=== PATIENT | female | born 2000 | race Caucasian/White ===

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

== ENCOUNTER 2021-03-17 23:54 | Emergency (ER) | payer MEDICAID ==
[~2021-03-17] VITALS: Ht 168 cm; Wt 63.5 kg
--- NOTE | 2021-03-18 00:36 | ED GU-Female ---
General Chief Complaint: Foreign Body Stated Complaint: TAMPON IN VAGINA,CAN'T GET IT OUT Source: patient, other Exam Limitations: no limitations History of Present Illness Date Seen by Provider: Mar 18, 2021 Time Seen by Provider: 00:21 Initial Comments Patient to the ER by private conveyance with her significant other and chief complaint that on Wednesday, 6 days ago she started having her period. Her last time she put a tampon and was Wednesday, 4 days ago and then she forgot about it. She says she has been having a little bit of menses but has been darker. She is having a foul odor. She is not having any pain just embarrassment. She is not having any discharge dysuria or diarrhea. She had her appendix out but no other abdominal surgeries. No nausea vomiting fevers or chills. She was unable to self extract her tampon. She follows with a primary care at [facility] in [place]. She is a student locally. Allergies and Home Medications Allergies Coded Allergies: morphine (Unverified Allergy, Unknown, 08/21/17) Patient Home Medication List Home Medication List Reviewed: Yes Review of Systems Review of Systems Constitutional: No chills, No diaphoresis EENTM: No ear discharge, No hearing loss Respiratory: No cough, No phlegm, No short of breath Cardiovascular: No edema, No palpitations Gastrointestinal: No abdominal pain, No constipation, No diarrhea, No nausea Genitourinary: see HPI; denies discharge, denies dysuria Musculoskeletal: No back pain, No joint pain All Other Systemes Reviewed Negative Unless Noted: Yes Past Gtpodzl-Jywbam-Qkvmlx Hx Patient Social History Tobacco Use?: No Use of E-Cig and/or Vaping dev: No Substance use?: No Alcohol Use?: Yes Alcohol type: Beer Alcohol Frequency: Once in a while Past Medical History Psychosocial: Yes Depression Blood Disorders: Yes Adverse Reaction/Blood Tranf: Yes Physical Exam Vital Signs Capillary Refill : Height, Weight, BMI Height: 5'6.00" Weight: 135lbs. oz. [id number]; 21.09 BMI Method:Stated General Appearance: WD/WN, no apparent distress HEENT: PERRL/EOMI, normal ENT inspection, pharynx normal Neck: full range of motion, supple, normal inspection Cardiovascular: normal peripheral pulses, regular rate, rhythm Respiratory: lungs clear, normal breath sounds, no respiratory distress, no accessory muscle use Gastrointestinal: normal bowel sounds, non tender, soft Neurologic/Psychiatric: alert, normal mood/affect, oriented x 3 Skin: normal color, warm/dry Procedures/Interventions Progress Speculum exam of the vagina. Using typical technique and sterile gloves we extracted a malodorous, dark tampon from around the cervix. We did not see any discharge or significant erythema. Patient tolerated procedure well. External vagina and pudendum were unremarkable. Progress/Results/Core Measures Suspected Sepsis SIRS Temperature: Pulse: Respiratory Rate: Blood Pressure / Mean: Results/Orders Vital Signs/I&O Capillary Refill : Departure Impression Primary Impression: Retained vaginal foreign body Qualified Codes: T19.2XXA - Foreign body in vulva and vagina, initial encounter Disposition: HOME, SELF-CARE Condition: Stable Departure-Patient Inst. Decision time for Depature: 01:00 Referrals: NO,LOCAL PHYSICIAN (PCP/Family) Primary Care Physician Patient Instructions: Vaginal Foreign Body Add. Discharge Instructions: Return to your OB provider or the ER if you develop a fever. Flagyl 1 tablet twice a day for the next week to prevent infection. You may also follow-up with [facility] for management of symptoms. All discharge instructions reviewed with patient and/or family. Voiced understanding. Scripts Metronidazole (Metronidazole) 500 Mg Tablet 500 MG PO BID for 7 Days, #14 TAB 0 Refills Prov: SHAUN PARRISH 03/18/21 SHAUN PARRISH Mar 18, 2021 00:36
[2021-03-18] MEDS ORDERED: cefTRIAXone 1,000 MG VIAL IM ONE (01:00)
[2021-03-18] MEDS ORDERED: LIDOCAINE 1% INJ 20 ML VIAL INJ ONE (01:00)
[2021-03-18] MEDS ORDERED: METR-145 PO (01:10)
[2021-03-18 01:52] VITALS: BP 146/85
== END 2021-03-18 01:52 | disposition home or self-care (01) ==
LOC: EDUNIT# 23:54 → ER 23:58
DX: T19.2XXA Foreign body in vulva and vagina, initial encounter (principal)
CPT/HCPCS: 99284

== ENCOUNTER 2021-08-29 08:20 | Emergency (ER) | payer MEDICAID ==
[~2021-08-29] VITALS: Ht 167 cm; Wt 63.5 kg
[~2021-08-29 08:20] MED LIST: METR-145 PO
--- NOTE | 2021-08-29 08:48 | ED GU-Female ---
General Chief Complaint: OB < 20 WEEKS Stated Complaint: N/V, Nursing Triage Note: PT HERE WITH COMPLAINTS OF NAUSEA, VOMITING, AND CRAMPING SINCE LAST WEDNESDAY. PT REPORTS SHE TOOK SEVERAL HOME TESTS THAT WERE POSITIVE. PT LAST MENSTRAUL PERIOD WAS THE July BUT ONLY LASTED 2 DAYS. Source: patient Exam Limitations: no limitations History of Present Illness Date Seen by Provider: Aug 29, 2021 Time Seen by Provider: 08:28 Initial Comments Patient to the ER by private conveyance from home with chief complaint of intractable nausea vomiting related to early . G1. LMP of 07/16/2021 putting her 6 weeks and 2 days. She has an appoint with Dr. Suazo to establish care next week. She is not on anything for her nausea vomiting. She is had about 1 month of cramping right lower quadrant abdominal discomfort rates presently as a 3 out of 10. No prior imaging. She is had her appendix out as well as knee repair. She is not having dysuria but she feels a little more exertional dyspnea and has noted dark urine. Nightly headaches. Does not take anything for them. There was a person at her work who went home sick with bronchitis. Allergies and Home Medications Allergies Coded Allergies: latex (Verified Allergy, Unknown, 08/29/21) morphine (Unverified Allergy, Unknown, 08/21/17) Patient Home Medication List Home Medication List Reviewed: Yes Doxylamine Succinate (Nighttime Sleep-Aid) 25 Mg Tablet, 25-50 MG PO BID PRN for NAUSEA/VOMITING-1ST LINE Prescribed by: SHAUN PARRISH on 08/29/21 09 Metronidazole (Metronidazole) 500 Mg Tablet, 500 MG PO BID Prescribed by: SHAUN PARRISH on 03/18/21 0110 Pyridoxine HCl (Pyridoxine HCl) 25 Mg Tablet, 25-50 MG PO BID PRN for NAUSEA/VOMITING-1ST LINE Prescribed by: SHAUN PARRISH on 08/29/21 0923 Review of Systems Review of Systems Constitutional: No chills, No diaphoresis EENTM: No hearing loss, No blurred vision Respiratory: No cough; dyspnea on exertion; No short of breath Cardiovascular: No chest pain, No edema Gastrointestinal: No abdominal pain, No nausea, No vomiting Genitourinary: denies discharge, denies dysuria Musculoskeletal: No back pain, No joint pain All Other Systemes Reviewed Negative Unless Noted: Yes Past Uiubmuq-Uhekjw-Vixyuk Hx Patient Social History Tobacco Use?: No Substance use?: No Alcohol Use?: No Pt feels they are or have been: No Immunizations Up To Date First/Initial COVID19 Vaccinat: N/A Second COVID19 Vaccination Power: N/A Third COVID19 Vaccination Date: N/A Past Medical History Surgery/Hospitalization HX: APPENDECTOMY, acl, meniscus Psychosocial: Yes Depression Blood Disorders: Yes Adverse Reaction/Blood Tranf: Yes Physical Exam Vital Signs Vital Signs - First Documented 08/29/21 08:35 Temp 37.0 Pulse 76 Resp 16 B/P (MAP) 154/91 (112) Pulse Ox 99 Capillary Refill : Less Than 3 Seconds Height, Weight, BMI Height: 5'6.00" Weight: 135lbs. oz. 61.505169du; 22.00 BMI Method:Stated General Appearance: WD/WN, no apparent distress HEENT: PERRL/EOMI, normal ENT inspection, TMs normal, pharynx normal Neck: full range of motion, supple, normal inspection Cardiovascular: normal peripheral pulses, regular rate, rhythm Respiratory: no respiratory distress, no accessory muscle use; No crackles, No wheezing; plerual rub (Faint right upper) Gastrointestinal: normal bowel sounds, non tender, soft Extremities: non-tender, normal inspection, normal capillary refill Neurologic/Psychiatric: alert, oriented x 3, other (Anxious) Skin: normal color, warm/dry Progress/Results/Core Measures Suspected Sepsis SIRS Temperature: Pulse: 76 Respiratory Rate: 16 Blood Pressure 154 /91 Mean: 112 Results/Orders Lab Results Laboratory Tests Test 08/29/21 08:30 Range/Units Urine Color YELLOW Urine Clarity CLEAR Urine pH 6.0 5-9 Urine Specific Freedom >=1.030 1.016-1.022 Urine Protein NEGATIVE NEGATIVE Urine Glucose (UA) NEGATIVE NEGATIVE Urine Ketones NEGATIVE NEGATIVE Urine Nitrite NEGATIVE NEGATIVE Urine Bilirubin NEGATIVE NEGATIVE Urine Urobilinogen 0.2 < = 1.0 MG/DL Urine Leukocyte Esterase NEGATIVE NEGATIVE Urine RBC (Auto) NEGATIVE NEGATIVE Urine RBC RARE /HPF Urine WBC RARE /HPF Urine Squamous Epithelial Cells 5-10 /HPF Urine Crystals PRESENT H /LPF Urine Amorphous Sediment FEW VANIA URATES H /LPF Urine Bacteria TRACE /HPF Urine Casts NONE /LPF Urine Mucus MODERATE H /LPF Urine Culture Indicated NO My Orders Orders - FRANCOIS,SHAUN J Ua Culture If Indicated (08/29/21 08:36) Urine Bedside (08/29/21 08:36) Pyridoxine Tablet (Vitamin B-6 Tablet) (08/29/21 09:15) Medications Given in ED Current Medications Medications Dose Ordered Sig/Yanique Route Start Time Stop Time Status Last Admin Dose Admin Pyridoxine HCl 50 mg ONCE ONCE PO 08/29/21 09:15 08/29/21 09:17 DC 08/29/21 09:30 50 MG Vital Signs/I&O 08/29/21 08:35 Temp 37.0 Pulse 76 Resp 16 B/P (MAP) 154/91 (112) Pulse Ox 99 Capillary Refill : Less Than 3 Seconds Blood Pressure Mean: 112 Progress Note : Time: 09:11 Progress Note Patient likely has a viral syndrome which could explain some of her exertional dyspnea. We did offer COVID testing which she declined. Informed her that it is likely that she has some viral syndrome and may yet develop a cough but unless this becomes more severe or her symptoms or not controlled she does not necessarily have to do anything else besides usual symptomatic support. For her sneezing we recommended Claritin or Zyrtec. Will also recommend doxylamine and vitamin B6. Urine specimen. We did offer IV fluids which the patient declined at this time. With her normal vital signs she probably does not need them. We will give her a dose of pyridoxine 50 mg. Departure Impression Primary Impression: related nausea and vomiting, antepartum Disposition: 01 HOME, SELF-CARE Condition: Stable Departure-Patient Inst. Decision time for Depature: 09:34 Referrals: NO,LOCAL PHYSICIAN (PCP/Family) Primary Care Physician Patient Instructions: Morning Sickness (DC) Add. Discharge Instructions: Pyridoxine/doxylamine 2 tablets twice a day as necessary for nausea or vomiting. You may take this preemptively. If you are having sneezing, runny nose etc. you can use 10 mg of Zyrtec or Claritin, cetirizine/loratadine as necessary daily. For breakthrough allergic symptoms you can use a tablet of Benadryl every 6 hours. Tylenol 1000 mg every 8 hours is okay for headaches or general pain/fever. Return to the ER promptly for significant dehydration, intractable vomiting or other worrisome symptoms. Follow-up keep your follow-up with Dr. Suazo as scheduled. All discharge instructions reviewed with patient and/or family. Voiced understanding. Scripts Doxylamine Succinate (Nighttime Sleep-Aid) 25 Mg Tablet 25-50 MG PO BID PRN for NAUSEA/VOMITING-1ST LINE for 7 Days, #28 TAB 0 Refills Prov: SHAUN PARRISH 08/29/21 Pyridoxine HCl (Pyridoxine HCl) 25 Mg Tablet 25-50 MG PO BID PRN for NAUSEA/VOMITING-1ST LINE for 7 Days, #28 TAB 0 Refills Prov: SHAUN PARRISH 08/29/21 Work/School Note: Work Release Form Date Seen in the Emergency Department: Aug 29, 2021 Return to Work: Aug 31, 2021 Restrictions: No Restrictions SHAUN PARRISH Aug 29, 2021 08:48
[2021-08-29 08:56] LABS: BILIRUBIN,URINE NEGATIVE (NEGATIVE); CLARITY,URINE CLEAR; COLOR,URINE YELLOW; GLUCOSE, URINE (UA) NEGATIVE (NEGATIVE); KETONES,URINE NEGATIVE (NEGATIVE); LEUKOCYTE ESTERASE ,URINE NEGATIVE (NEGATIVE); NITRITE,URINE NEGATIVE (NEGATIVE); PROTEIN,URINE NEGATIVE (NEGATIVE)
[2021-08-29] MEDS ORDERED: PYRIDOXINE (VITAMIN B-6) 50 MG TABLET PO ONE (09:15)
[2021-08-29 09:23] LABS: AMORPHOUS SEDIMENT,UR FEW AMOR URATES /LPF; BACTERIA,URINE TRACE /HPF; RBC,URINE RARE /HPF; WBC,URINE RARE /HPF
[2021-08-29] MEDS ORDERED: DOXY25TA45 PO (09:23)
[2021-08-29] MEDS ORDERED: PYRI25TA4 PO (09:23)
[2021-08-29 09:39] VITALS: BP 120/74
== END 2021-08-29 09:39 | disposition home or self-care (01) ==
LOC: EDUNIT# 08:20 → ER 08:22
DX: O21.9 Vomiting of pregnancy, unspecified (principal); Z91.040 Latex allergy status; Z3A.01 Less than 8 weeks gestation of pregnancy
CPT/HCPCS: 81000; 84703; 99283

== ENCOUNTER → 2021-12-04 | Outpatient (CLI) | payer MEDICAID ==
[~2021-12-04] MED LIST changes: +DOXY25TA45 PO; +PYRI25TA4 PO
--- NOTE | 2021-12-04 17:48 | Diagnostic Imaging Report ---
INDICATION: anatomy survey. TECHNIQUE: Multiple real-time grayscale images were obtained over the gravid uterus. COMPARISON: None FINDINGS: The cervix measures 4.6 cm. Fetus is in cephalic presentation. The placenta is anterior in position and there are no features of previa. The amount of amniotic fluid appears visually appropriate and the CLAIRE is normal at 16.13 cm. Due to advanced gestational age, maternal adnexa are not well evaluated. Following structures are identified and normal: Four-chamber heart, stomach, umbilical cord insertion, kidneys, cerebral ventricles, cerebellum, cisterna magna, urinary bladder, three-vessel cord and spine. Biometrical measurements are as follows: Biparietal 4.79 cm, age 20 weeks 4 days. Head circumference 17.98 cm, age 20 weeks 3 days. Abdominal circumference 14.85 cm, age 20 weeks 1 days. Femur length 3.22 cm, age 20 weeks 1 days. Sonographic estimate age: 20 weeks 3 days. Sonographic estimated date of delivery: 04/20/2022. Estimated Weight: 334 gm (+/- 49 gm). LMP percentile: 44%. heart rate: 140 beats per minute. number: 1 of 1. IMPRESSION: 1. Single live intrauterine with normal anatomy survey. Dictated by: Dictated on workstation # [id number]
== END ==
LOC: RAD 09:32
PROVIDERS: ATTEND Obstetrics & Gynecology
DX: Z36.1 Encounter for antenatal screening for raised alphafetoprotein level (principal); Z34.92 Encounter for supervision of normal pregnancy, unspecified, second trimester; Z3A.20 20 weeks gestation of pregnancy
CPT/HCPCS: 76805

== ENCOUNTER → 2022-03-23 | Outpatient (CLI) | payer MEDICAID | LOC: LABNPT 09:53 | PROVIDERS: ATTEND Obstetrics & Gynecology | DX: Z01.89 Encounter for other specified special examinations (principal) | CPT/HCPCS: 82570; 84156 ==

== ENCOUNTER → 2022-03-30 | Outpatient (CLI) | payer MEDICAID ==
[2022-03-30 16:14] LABS: URINE CREATININE FOR RATIO 26 MG/DL (30-125)
[2022-03-30 16:15] LABS: URINE PROTEIN FOR RATIO ONLY < 6 MG/DL (6-12)
== END ==
LOC: LABNPT 15:51
PROVIDERS: ATTEND Obstetrics & Gynecology
DX: O13.9 Gestational [pregnancy-induced] hypertension without significant proteinuria, unspecified trimester (principal); Z3A.00 Weeks of gestation of pregnancy not specified
CPT/HCPCS: 82570; 84156

== ENCOUNTER → 2022-04-06 | Outpatient (CLI) | payer MEDICAID | LOC: LABNPT 15:39 | DX: O13.9 Gestational [pregnancy-induced] hypertension without significant proteinuria, unspecified trimester (principal); Z3A.00 Weeks of gestation of pregnancy not specified | CPT/HCPCS: 82570; 84156 ==

== ENCOUNTER 2022-04-07 10:10 | Inpatient (IN) | payer MEDICAID ==
[2022-04-07] VITALS (48 sets, daily range): BP systolic 115–169; BP diastolic 65–109
[~2022-04-07] VITALS: Ht 167.7 cm; Wt 100.2 kg
[2022-04-07] MEDS ORDERED: D5 LR IV SOLUTION 1,000 ML IV SCH (11:00)
[2022-04-07] MEDS ORDERED: LIDOCAINE 1% INJ 20 ML VIAL IJ PRN (11:00)
[2022-04-07 11:10] LABS: BASOPHILS % (AUTO) 0 % (0-10); EOSINOPHILS # (AUTO) 0.1 10^3/uL (0.0-0.3); EOSINOPHILS % (AUTO) 1 % (0-10); HEMATOCRIT 35 % (35-52); HEMOGLOBIN 11.8 g/dL (11.5-16.0); LYMPHOCYTES # (AUTO) 1.3 10^3/uL (1.0-4.0); LYMPHOCYTES % (AUTO) 19 % (12-44); MEAN CORPUSCULAR HEMOGLOBIN 30 pg (25-34); MEAN CORPUSCULAR HGB CONC 34 g/dL (32-36); MEAN CORPUSCULAR VOLUME 90 fL (80-99); MEAN PLATELET VOLUME 10.8 fL (9.0-12.2); MONOCYTES # (AUTO) 0.4 10^3/uL (0.0-1.0); MONOCYTES % (AUTO) 6 % (0-12); NEUTROPHILS # (AUTO) 5.2 10^3/uL (1.8-7.8); NEUTROPHILS % (AUTO) 74 % (42-75); PLATELET COUNT 212 10^3/uL (130-400)
--- NOTE | 2022-04-07 11:16 | History & Physical-OB ---
OB - Chief Complaint & HPI Date/Time Date of Admission: Date of Admission: Apr 07, 2022 at 10:10 Date seen by a Provider: Apr 07, 2022 Time Seen by a Provider: 11:00 Chief Complaint/History OB-Reason for Admission/Chief: Onset of Labor Hx : 1 Hx Para: 0 Expected Date of Delivery: Apr 22, 2022 Gestational Age in Weeks: 37 Gestational Age in Days: 6 Other reason for admission: Irregular contractions and finding of preE History of Labs O neg Antibody neg RI RPR NR HBsAg NR HIV NR GC neg GBS neg Allergies and Home Medications Allergies Coded Allergies: latex (Verified Allergy, Unknown, 08/29/21) morphine (Unverified Allergy, Unknown, 08/21/17) Patient Home Medication List Home Medication List Reviewed: Yes Doxylamine Succinate (Nighttime Sleep-Aid) 25 Mg Tablet, 25-50 MG PO BID PRN for NAUSEA/VOMITING-1ST LINE Prescribed by: SHAUN PARRISH on 08/29/21922 Metronidazole (Metronidazole) 500 Mg Tablet, 500 MG PO BID Prescribed by: SHAUN PARRISH on 03/18/21 011 Pyridoxine HCl (Pyridoxine HCl) 25 Mg Tablet, 25-50 MG PO BID PRN for NAUSEA/VOMITING-1ST LINE Prescribed by: SHAUN PARRISH on 08/29/21922 OB - History Hx of Present Care: Yes Ultrasounds: Normal mid trimester US Obstetrical Complications: Pre-eclampsia Medical Complications: None Delivery History Adverse Rxn to Tranfusion: Yes Patient Past Medical History nc Immunizations First/Initial COVID19 Vaccine: N/A Second COVID19 Vaccination: N/A Third COVID19 Vaccination Date: N/A OB - Admission Exam Physical Exam HEENT: NCAT Heart: Rhythm Normal Lungs: Clear Abdomen: Gravid Extremities: Normal Reflexes: Normal Cervical Dilatation: 3cm Effacement: 75% Station: -1 Membranes: Intact Heart Rate: 130's Accelerations: Accelerations Present Decelerations: No Decelerations Short Term Variability: Present Detention Variability: Average (6-25) Contractions on Admission: < 5 Minutes Apart Intensity: Firm Labs Laboratory Tests Test 04/07/22 10:30 Range/Units OB - Assessment/Plan/Diagnosis Assessment Admission Dx 21 yo @ 37 weeks PreE Irregular contractions GBS neg Admission Status: Inpatient Order (span 2 midnights) Reason for Inpatient Admission: Augmentation of labor at 37 weeks Plan Induction Method: MARY GARIBAY DO Apr 07, 2022 11:16
[2022-04-07] MEDS: OXYTOCIN PRE-MIX DRIP 500 ML IV SCH ×2 (13:26→19:08)
[2022-04-07] MEDS ORDERED: CATHETER FLUSH 10 ML SYR IV SCH ×2 (14:00→22:00)
[2022-04-07] MEDS ORDERED: fentaNYL 2 mcg/ml BUPIVA 0.125 0 ML ONE (14:47)
[2022-04-07] MEDS ORDERED: LACTATED RINGERS 1,000 ML IV ONE ×3 (14:48→15:30)
[2022-04-07] MEDS ORDERED: ONDANSETRON 4 MG/2 ML (SDV) Z0FRAN IV PRN (15:30)
[2022-04-07] MEDS ORDERED: NALOXONE 0.4 MG/ML 1 ML (NARCAN) VIAL IV PRN ×2 (15:30→19:30)
[2022-04-07] MEDS ORDERED: BUPIVACAINE 0.75% INJECTION 16.7 ML in NS (IVPB) 83.3 ML IV NR (15:30)
[2022-04-07] MEDS ORDERED: BUPIVACAINE 0.25% 10 ML (SENSORCAINE) VIAL ONE (15:37)
[2022-04-07] MEDS ORDERED: BUPIVACAINE 0.5% IV SCH (15:45)
[2022-04-07] MEDS ORDERED: NS IV SCH (15:45)
[2022-04-07] MEDS ORDERED: LIDOCAINE 1% INJ 10 ML VIAL ONE (18:14)
--- NOTE | 2022-04-07 19:23 | OB Labor & Delivery Record ---
L&D History Date of Service Date of Service: Apr 07, 2022 History Expected Date of Delivery: Apr 22, 2022 Gestational Age in Weeks: 37 Hx : 1 Hx Para: 0 Complications Events: Routine care Operative Indications (Cesarea: N/A-Vaginal Delivery Intrapartal Events: None L&D Stage1 Stage One Onset of Labor - Date: Apr 07, 2022 Monitors and Tracing Monitor Mode: External Heart Rate: 130 Station: -1 Seam Taper Machine Variability: Average (6-10) Short Term Variability: Present Presentation: Vertex Vital Signs VS - Last 72 Hours, by Label 04/07/22 04/07/22 04/07/22 04/07/22 10:25 10:36 11:07 11:37 Temp 36.8 Pulse 81 79 90 76 Resp 20 18 18 18 B/P (MAP) 156/92 (113) 143/95 (111) 134/78 (96) Pulse Ox 98 98 98 98 O2 Delivery Room Air Room Air Room Air Room Air 04/07/22 04/07/22 04/07/22 04/07/22 12:09 12:38 13:09 13:43 Pulse 61 67 60 85 Resp 18 18 18 18 B/P (MAP) 152/92 (112) 139/84 (102) 157/92 (113) 143/96 (112) Pulse Ox 98 98 98 98 O2 Delivery Room Air Room Air Room Air Room Air 04/07/22 04/07/22 04/07/22 04/07/22 13:58 14:12 14:28 14:42 Pulse 69 69 63 69 Resp 18 18 18 18 B/P (MAP) 153/97 (115) 136/90 (105) 139/97 (111) 149/89 (109) Pulse Ox 98 99 98 97 O2 Delivery Room Air Room Air Room Air Room Air 04/07/22 04/07/22 04/07/22 04/07/22 14:58 15:13 15:27 15:40 Pulse 59 54 55 71 Resp 18 18 18 18 B/P (MAP) 156/96 (116) 123/69 (87) 130/82 (98) 168/95 (119) Pulse Ox 98 98 98 98 O2 Delivery Room Air Room Air Room Air Room Air 04/07/22 04/07/22 04/07/22 04/07/22 15:42 15:45 15:47 15:52 Pulse 77 72 96 74 Resp 18 18 18 18 B/P (MAP) 165/98 (120) 153/95 (114) 160/99 (119) 149/94 (112) Pulse Ox 98 98 98 O2 Delivery Room Air Room Air Room Air Room Air 04/07/22 04/07/22 15:55 15:58 Pulse 73 81 Resp 18 18 B/P (MAP) 155/95 (115) 154/108 (123) Pulse Ox 98 99 O2 Delivery Room Air Room Air Rupture of Membranes Spontaneous Ruture of Membrane: No Amniotic Membrane Fluid Desc.: Clear Vaginal Bleeding Description: Normal Show Induction/Anesthesia Epidural Cath Placement - Time: 1550 Progress/Notes Patient admitted with contractions and findings of preE. AROM performed after admission, pitocin augmentation started to a max dose of 6 mu. She progressed after her epidural rapidly to complete and + 2 L&D Stage2 Stage Two Stage II Date: Apr 07, 2022 Monitors and Tracing Monitor Mode: External Heart Rate: 130 Monitor Accelerations: Uniform Monitor Decelerations: Variable Seam Taper Machine Variability: Average (6-10) Short Term Variability: Present Position: Right Occiput Anterior Presentation: Vertex Cord Descript/Complications Cord Vessel Description: 3 Vessels Complications nuchal cord reduced x 1 Delivery Type Infant Delivery Method: Spontaneous Vaginal Anterior Shoulder: Left Episiotomy/Perineal Laceration Episiotomy Description: Perineal Extension/lac, Vaginal Extension/lac, 2nd degree Degree (describe repair) vaginal/perineal laceration repaired using 3-0 rapide vicryl in usual fashion. Condition of Delivery 1 minute Comment: 8 5 minute Comment: 9 Notes Live male weight 7lbs 9 oz Condition of Infant Condition of Infant: Living Exam: No Observed Abnormalities Resuscitation Resuscitation: N/A - Spontaneous Resp L&D Stage3 Stage Three Stage III Date: Apr 07, 2022 Pictocin Pitocin Administration Comment: 30 mu wide open after delivery of placenta Placenta Delivery Placenta Delivery: Spontaneous Delivery Summary Summary Estimated blood loss (mL): 371 Attending at delivery: Mary King DO Condition of Delivery Examined: Cervix Examined, Uterus Explored Post Hemorrhage: No Condition of Mother stable Condition of Infant (s) stable MARY KING DO Apr 07, 2022 19:23
[2022-04-07] MEDS ORDERED: MEASLES,MUMPS,RUBELLA 1 EA INJ SQ ONE (19:30)
[2022-04-07] MEDS ORDERED: BENZOCAINE/MENTHOL (DERMOPLAST) 56 ML CAN TP PRN (19:30)
[2022-04-07] MEDS ORDERED: HYDROcodone/APAP 5 MG/325 MG (LORTAB) TAB PO PRN (19:30)
[2022-04-07] MEDS ORDERED: OXYTOCIN PRE-MIX DRIP 500 ML IV SCH (19:30)
[2022-04-07] MEDS ORDERED: WITCH HAZEL(TUCKS) 40 EA JAR TOP PRN (19:30)
[2022-04-07] MEDS: DOCUSATE SODIUM 100 MG (COLACE) CAP PO SCH (20:18)
[2022-04-07] MEDS: IBUPROFEN 600 MG (MOTRIN) TAB PO SCH (20:19)
[2022-04-08 00:20] VITALS: BP 138/76
[2022-04-08] MEDS: IBUPROFEN 600 MG (MOTRIN) TAB PO SCH ×4 (02:38→21:13)
[2022-04-08] MEDS ORDERED: ACETAMINOPHEN 500 MG TAB (TYLENOL) ONE (04:29)
[2022-04-08] MEDS ORDERED: ACETAMINOPHEN 500 MG TAB (TYLENOL) PO PRN (04:30)
[2022-04-08 04:32] VITALS: BP 143/89
[2022-04-08 05:57] LABS: BASOPHILS % (AUTO) 0 % (0-10); EOSINOPHILS # (AUTO) 0.1 10^3/uL (0.0-0.3); EOSINOPHILS % (AUTO) 0 % (0-10); HEMATOCRIT 29 % (35-52); HEMOGLOBIN 9.8 g/dL (11.5-16.0); LYMPHOCYTES % (AUTO) 14 % (12-44); MEAN CORPUSCULAR HEMOGLOBIN 31 pg (25-34); MEAN CORPUSCULAR HGB CONC 34 g/dL (32-36); MEAN CORPUSCULAR VOLUME 90 fL (80-99); MEAN PLATELET VOLUME 10.4 fL (9.0-12.2); MONOCYTES # (AUTO) 0.8 10^3/uL (0.0-1.0); MONOCYTES % (AUTO) 6 % (0-12); NEUTROPHILS # (AUTO) 11.1 10^3/uL (1.8-7.8); NEUTROPHILS % (AUTO) 79 % (42-75); PLATELET COUNT 180 10^3/uL (130-400); WHITE BLOOD COUNT 14.1 10^3/uL (4.3-11.0)
--- NOTE | 2022-04-08 07:19 | Postpartum Progress Note ---
Note Note Day # 1 Subjective: Patient is without complaints. Ambulating, voiding. Tolerating a regular diet without nausea or vomiting. Normal lochia. Pain is well controlled with oral pain medications. Objective: Physical Exam: General - Alert and oriented, no apparent distress Abdomen - Soft, appropriately tender to palpation, non-distended, fundus firm at umbilicus Extremities - no edema, negative Jose's bilaterally Assessment: PPD 1 NVD Mild PreE- labile BP starting on Labetalol BID 200 mg Acute blood loss anemia Plan: Routine care. Encourage breast feeding. Encourage ambulation. Ferrous sulfate supplementation. Plan for discharge tomorrow Vitals - Labs Vital Signs - I&O Vital Signs Date Time Temp Pulse Resp B/P (MAP) Pulse Ox O2 Delivery O2 Flow Rate FiO2 04/08/22 04:32 36.7 85 18 143/89 (107) 97 Room Air 04/08/22 00:20 37.1 76 18 138/76 (96) 97 Room Air 04/07/22 20:45 36.8 78 18 146/72 (96) 04/07/22 20:31 86 142/76 (98) Room Air 04/07/22 20:01 78 141/67 (91) Room Air 04/07/22 19:46 36.9 78 151/79 (103) Room Air 04/07/22 19:31 78 151/79 (103) Room Air 04/07/22 19:16 36.8 88 18 146/65 (92) Room Air 04/07/22 15:58 81 18 154/108 (123) 99 Room Air 04/07/22 15:55 73 18 155/95 (115) 98 Room Air 04/07/22 15:52 74 18 149/94 (112) 98 Room Air 04/07/22 15:47 96 18 160/99 (119) 98 Room Air 04/07/22 15:45 72 18 153/95 (114) Room Air 04/07/22 15:42 77 18 165/98 (120) 98 Room Air 04/07/22 15:40 71 18 168/95 (119) 98 Room Air 04/07/22 15:27 55 18 130/82 (98) 98 Room Air 04/07/22 15:13 54 18 123/69 (87) 98 Room Air 04/07/22 14:58 59 18 156/96 (116) 98 Room Air 04/07/22 14:42 69 18 149/89 (109) 97 Room Air 04/07/22 14:28 63 18 139/97 (111) 98 Room Air 04/07/22 14:12 69 18 136/90 (105) 99 Room Air 04/07/22 13:58 69 18 153/97 (115) 98 Room Air 04/07/22 13:43 85 18 143/96 (112) 98 Room Air 04/07/22 13:09 60 18 157/92 (113) 98 Room Air 04/07/22 12:38 67 18 139/84 (102) 98 Room Air 04/07/22 12:09 61 18 152/92 (112) 98 Room Air 04/07/22 11:37 76 18 134/78 (96) 98 Room Air 04/07/22 11:07 90 18 143/95 (111) 98 Room Air 04/07/22 10:36 79 18 156/92 (113) 98 Room Air 04/07/22 10:25 36.8 81 20 98 Room Air I & O 04/08/22 06:59 Intake Total 1000 ml Balance 1000 ml Labs Laboratory Tests 04/07/22 10:30: White Blood Count 7.0, Red Blood Count 3.91, Hemoglobin 11.8, Hematocrit 35, Mean Corpuscular Volume 90, Mean Corpuscular Hemoglobin 30, Mean Corpuscular Hemoglobin Concent 34, Red Cell Distribution Width 12.1, Platelet Count 212, Mean Platelet Volume 10.8, Immature Granulocyte % (Auto) 1, Neutrophils (%) (Auto) 74, Lymphocytes (%) (Auto) 19, Monocytes (%) (Auto) 6, Eosinophils (%) (Auto) 1, Basophils (%) (Auto) 0, Neutrophils # (Auto) 5.2, Lymphocytes # (Auto) 1.3, Monocytes # (Auto) 0.4, Eosinophils # (Auto) 0.1, Basophils # (Auto) 0.0, Immature Granulocyte # (Auto) 0.0, Syphilis Serology Non-Reactive 04/08/22 05:38: White Blood Count 14.1H, Red Blood Count 3.21L, Hemoglobin 9.8L, Hematocrit 29L, Mean Corpuscular Volume 90, Mean Corpuscular Hemoglobin 31, Mean Corpuscular Hemoglobin Concent 34, Red Cell Distribution Width 12.0, Platelet Count 180, Mean Platelet Volume 10.4, Immature Granulocyte % (Auto) 0, Neutrophils (%) (Auto) 79H, Lymphocytes (%) (Auto) 14, Monocytes (%) (Auto) 6, Eosinophils (%) (Auto) 0, Basophils (%) (Auto) 0, Neutrophils # (Auto) 11.1H, Lymphocytes # (Auto) 2.0, Monocytes # (Auto) 0.8, Eosinophils # (Auto) 0.1, Basophils # (Auto) 0.0, Immature Granulocyte # (Auto) 0.1 MARY KING DO Apr 08, 2022 07:19
[2022-04-08 08:39] VITALS: BP 143/90
[2022-04-08] MEDS: PRENATAL VITAMIN 1 EA TAB PO SCH (08:43)
[2022-04-08] MEDS: DOCUSATE SODIUM 100 MG (COLACE) CAP PO SCH ×2 (08:43→21:13)
[2022-04-08] MEDS: LABETALOL 200 MG (NORMODYNE) TAB PO SCH ×2 (08:44→21:13)
[2022-04-08] MEDS ORDERED: LABETALOL 200 MG (NORMODYNE) TAB PO ONE (08:44)
--- NOTE | 2022-04-08 09:28 | Anesthesia-Regional Post-Op ---
Regional Patient Condition Mental Status: Alert, Oriented x3 Circulation: Same as Pre-Op Headache: Absent Sensation: Full Recovery Motor Block: Absent Post Op Complications Complications None Follow Up Care/Instructions Patient Instructions None needed. Anesthesia/Patient Condition Patient is doing well, no complaints, stable vital signs, no apparent adverse anesthesia problems. No complications reported per nursing. ZACKERY JENKINS CRNA Apr 08, 2022 09:28
[2022-04-08 13:10] VITALS: BP 133/80
[2022-04-08 21:13] VITALS: BP 138/87
[2022-04-09 03:10] VITALS: BP 119/67
[2022-04-09] MEDS: IBUPROFEN 600 MG (MOTRIN) TAB PO SCH ×2 (03:11→10:29)
--- NOTE | 2022-04-09 08:21 | Postpartum Progress Note ---
Note Note Day # 2 Subjective: Patient is without complaints. Ambulating, voiding. Tolerating a regular diet without nausea or vomiting. Normal lochia. Pain is well controlled with oral pain medications. Objective: Physical Exam: General - Alert and oriented, no apparent distress Abdomen - Soft, appropriately tender to palpation, non-distended, fundus firm at umbilicus Extremities - no edema, negative Jose's bilaterally Assessment: PPD 2 NVD Mild Pre E - BP improved Acute blood loss anemia Plan: Routine care. Encourage breast feeding. Encourage ambulation. Ferrous sulfate supplementation. Plan for discharge today Vitals - Labs Vital Signs - I&O Vital Signs Date Time Temp Pulse Resp B/P (MAP) Pulse Ox O2 Delivery O2 Flow Rate FiO2 04/09/22 03:10 36.8 91 18 119/67 (84) 97 Room Air 04/08/22 21:13 36.7 91 18 138/87 (104) 98 Room Air 04/08/22 13:10 36.8 82 18 133/80 (97) 97 Room Air 04/08/22 08:39 36.9 82 18 143/90 (107) 97 Room Air MARY KING DO Apr 09, 2022 08:21
[2022-04-09] MEDS ORDERED: LABE200T10 PO (08:22)
[2022-04-09] MEDS ORDERED: DOCU100C37 PO (08:22)
[2022-04-09] MEDS ORDERED: IBUP-844 PO (08:22)
[2022-04-09] MEDS ORDERED: ACHD5005 PO (08:22)
[2022-04-09] MEDS ORDERED: BENZ78AE5 TP (08:22)
--- NOTE | 2022-04-09 08:27 | Discharge Inst-Women's Service ---
Discharge Inst-Women's Serv Depart Medication/Instructions New, Converted or Re-Newed RX: Transmitted to Pharmacy Final Diagnosis PPD 2 NVD PreE Problems Reviewed?: Yes Consults/Follow Up Additional Follow Up: Yes Orders/Referrals Dr. King in 7 days for BP check/ 6 weeks PP appointment Activity Activity: Activity as Tolerated Driving Instructions: No Driving for 1 Week NO SMOKING: NO SMOKING Nothing Inside Vagina: No Douching, No [place], No Tampons Diet Discharge Diet: No Restrictions Symptoms to Report to : Bleeding Excessive, Pain Increased, Fever Over 101 Degrees F, Vaginal Bleeding Increase, Questions/Concerns For Any Problems or Questions: Contact Your Physician MARY KING DO Apr 09, 2022 08:27
[2022-04-09 10:25] VITALS: BP 148/85
[2022-04-09] MEDS: DOCUSATE SODIUM 100 MG (COLACE) CAP PO SCH (10:29)
[2022-04-09] MEDS: LABETALOL 200 MG (NORMODYNE) TAB PO SCH (10:29)
[2022-04-09] MEDS: PRENATAL VITAMIN 1 EA TAB PO SCH (10:29)
[2022-04-09] MEDS ORDERED: MEASLES,MUMPS,RUBELLA 1 EA INJ ONE (10:37)
== END 2022-04-09 11:25 | disposition home or self-care (01) | DRG 806 ==
LOC: LDRP 10:10
PROVIDERS: ADMIT Obstetrics & Gynecology; ATTEND Obstetrics & Gynecology
PROC: 10E0XZZ Delivery of Products of Conception, External Approach (ICD-10-PCS; principal; 2022-04-07)
PROC: 0KQM0ZZ Repair Perineum Muscle, Open Approach (ICD-10-PCS; 2022-04-07)
PROC: 10907ZC Drainage of Amniotic Fluid, Therapeutic from Products of Conception, Via Natural or Artificial Opening (ICD-10-PCS; 2022-04-07)
PROC: 0UQGXZZ Repair Vagina, External Approach (ICD-10-PCS; 2022-04-07)
DX: O14.04 Mild to moderate pre-eclampsia, complicating childbirth (principal); D62 Acute posthemorrhagic anemia; Z37.0 Single live birth; Z3A.37 37 weeks gestation of pregnancy; O70.1 Second degree perineal laceration during delivery; O90.81 Anemia of the puerperium; Z28.310 Unvaccinated for COVID-19; Z23 Encounter for immunization
CPT/HCPCS: 36415; 85025; 86780; 86850; 86900; 86901; 90707